=== PATIENT | female | born 1975 ===

== ENCOUNTER → 2018-02-07 21:31 | Outpatient (REF) | payer OTHER, SELFPAY ==
[2018-02-07 21:48] LABS: Add Manual Diff / Slide Review NO; Eosinophils Percent Auto 1.4 % (2-4); Hematocrit 37.6 % (36-46); Hemoglobin 12.4 g/dL (12.0-16.0); Lymphocytes Percent Auto 30.1 % (25-40); Mean Corpuscular Hemoglobin 30.7 PG (26-34); Mean Corpuscular Volume 92.9 fL (80-100); Neutrophils Absolute Auto 2800 /uL (1500-7000); Neutrophils Percent Auto 59.5 % (50-75); Platelet Count 254 X10^3/uL (150-400); Red Blood Cell Count 4.04 X10^6/uL (4.0-5.2); Red Cell Distribution Width 13.4 % (11.6-14.8); White Blood Cell Count 4.7 X10^3/uL (4.5-11.0)
[2018-02-07 22:17] LABS: Erythrocyte Sedimentation Rate 16 MM/HR (0-20)
[2018-02-08 07:46] LABS: HEMOLYSIS < 15 (0-50); Iron 93 ug/dL (37-170)
[2018-02-08 08:02] LABS: Percent Iron Saturation 30 % (15-50); Total Iron Binding Capacity 312 ug/dL (265-497); Transferrin 244 mg/dL (206-381)
[2018-02-08 08:05] LABS: Free T4, Direct Thyroxine 0.96 ng/dL (0.78-2.19)
[2018-02-08 08:18] LABS: Thyroid Stimulating Hormone 1.15 uIU/mL (0.47-4.68)
[2018-02-10 13:18] LABS: C.albicans IgA 0.3; C.albicans IgG 0.8; C.albicans IgM 0.5 (<1.0)
[2018-02-14 15:26] LABS: Triiodothyronine T3 Reverse 16 ng/dL (8-25)
== END ==
LOC: LAB 21:31
PROVIDERS: Visit Provider Acupuncturist
DX: K59.00 Constipation, unspecified (principal); M25.50 Pain in unspecified joint; R53.83 Other fatigue
CPT/HCPCS: 36415; 83540; 83550; 84439; 84443; 84481; 84482; 85025; 85651; 86628